=== PATIENT | male | born 1955 | race Caucasian/White ===

== ENCOUNTER 2019-11-23 20:48 | Observation (INO) | payer MEDICARE, OTHER ==
[2019-11-23] MEDS ORDERED: SODIUM CHLORIDE 0.9% 1,000 ML IV STA (21:29)
--- NOTE | 2019-11-23 21:46 | ED ---
General Adult HPI - General Chief complaint: Syncope Stated complaint: Syncope Time Seen by Provider: 11/23/19 21:00 Source: patient, EMS Mode of arrival: EMS Limitations: no limitations - History of Present Illness Initial comments: 64-year-old male patient presents to the emergency department today for evaluation after having 3 syncopal episodes. Patient was pain with some friends when he stood up stated he felt really dizzy and then crumpled to the ground. States that he came to and sit up 2 more times with similar results. We states he was clenching his fists and his arms were shaking when this occurred. Patient did hit his head with one of the falls. Patient states he currently feels well. Denies any headache, blurred vision, double vision. Denies any chest pain or shortness of breath. States she has been feeling more tired than usual over the last couple days but otherwise well. He does not take any medications for other medical conditions. States he did have 2 beers this evening. Denies any other injuries at the falls. Denies neck or back pain. Patient denies any recent rash, fever, chills, cough, abdominal pain, nausea, vomiting, diarrhea, constipation, numbness, tingling, dizziness, weakness, hematuria, dysuria, urinary urgency, urinary frequency, or any other complaints. - Related Data Home Medications Medication Instructions Recorded Confirmed Multivitamins, Thera [Multivitamin 1 tab PO DAILY 11/23/19 11/23/19 (formulary)] Allergies Allergy/AdvReac Type Severity Reaction Status Date / Time No Known Allergies Allergy Verified 11/23/19 22:27 Review of Systems ROS Statement: Those systems with pertinent positive or pertinent negative responses have been documented in the HPI. ROS Other: All systems not noted in ROS Statement are negative. Past Medical History Past Medical History: No Reported History History of Any Multi-Drug Resistant Organisms: None Reported Past Surgical History: No Surgical Hx Reported Past Psychological History: No Psychological Hx Reported Smoking Status: Never smoker Past Alcohol Use History: Occasional Past Drug Use History: Marijuana General Exam Limitations: no limitations General appearance: alert, in no apparent distress, other (This is a well- developed, well-nourished adult male patient in no acute distress. Vital signs upon presentation are temperature 99.0F, pulse 73, respirations 18, blood pressure 139/79, pulse ox 97% on room air.) Head exam: Present: other (Abrasion noted to the right frontal scalp) Eye exam: Present: normal appearance, PERRL, EOMI. Absent: scleral icterus, conjunctival injection, nystagmus, periorbital swelling ENT exam: Present: normal exam, normal oropharynx, mucous membranes moist Neck exam: Present: normal inspection, full ROM, other (Nontender, no step-off, no deformity to firm midline palpation of the posterior cervical spine. Full range of motion without pain or limitation.). Absent: tenderness, meningismus, lymphadenopathy Respiratory exam: Present: normal lung sounds bilaterally. Absent: respiratory distress, wheezes, rales, rhonchi, stridor Cardiovascular Exam: Present: regular rate, normal rhythm, normal heart sounds. Absent: systolic murmur, diastolic murmur, rubs, gallop, clicks GI/Abdominal exam: Present: soft, normal bowel sounds. Absent: distended, tenderness, guarding, rebound, rigid Back exam: Present: normal inspection. Absent: vertebral tenderness Neurological exam: Present: alert, oriented X3, CN II-XII intact, other (Strength in all 4 extremities is 5/5.) Psychiatric exam: Present: normal affect, normal mood Skin exam: Present: warm, dry, intact, normal color. Absent: rash Course Vital Signs 11/23/19 11/23/19 20:51 22:33 Temperature 99.0 F Pulse Rate 73 69 Respiratory 18 18 Rate Blood Pressure 139/79 133/76 O2 Sat by Pulse 97 98 Oximetry EKG Findings - EKG Comments: EKG Findings:: EKG obtained at 2103 shows normal sinus rhythm with a ventricular rate of 71, ID interval 154, QRS duration 76, QT 362, QTc 393. No evidence of ST elevation or depression. Medical Decision Making - Medical Decision Making 64-year-old male patient presents to the emergency department today for evaluation of syncope 3. Physical examination is unremarkable. He is neurologically intact with no focal deficits. Labs reviewed and are unremarkable. EKG shows normal sinus rhythm. CT brain negative. Chest x-ray negative. Patient be admitted to the hospital for observation. Dr. Downey is accepting. - Lab Data Result diagrams: 11/23/19 21:38 11/23/19 21:38 Lab Results 11/23/19 11/23/19 11/23/19 Range/Units 21:38 21:38 21:38 WBC 5.7 (3.8-10.6) k/uL RBC 4.82 (4.30-5.90) m/uL Hgb 14.6 (13.0-17.5) gm/dL Hct 44.2 (39.0-53.0) % MCV 91.7 (80.0-100.0) fL MCH 30.3 (25.0-35.0) pg MCHC 33.0 (31.0-37.0) g/dL RDW 12.9 (11.5-15.5) % Plt Count 196 (150-450) k/uL Neutrophils % 69 % Lymphocytes % 19 % Monocytes % 8 % Eosinophils % 1 % Basophils % 1 % Neutrophils # 3.9 (1.3-7.7) k/uL Lymphocytes # 1.1 (1.0-4.8) k/uL Monocytes # 0.4 (0-1.0) k/uL Eosinophils # 0.1 (0-0.7) k/uL Basophils # 0.1 (0-0.2) k/uL PT 9.9 (9.0-12.0) sec INR 0.9 (<1.2) APTT 22.1 (22.0-30.0) sec Sodium (137-145) mmol/L Potassium (3.5-5.1) mmol/L Chloride (98-107) mmol/L Carbon Dioxide (22-30) mmol/L Anion Gap mmol/L BUN (9-20) mg/dL Creatinine (0.66-1.25) mg/dL Est GFR (CKD-EPI)AfAm (>60 ml/min/1.73 sqM) Est GFR (CKD-EPI)NonAf (>60 ml/min/1.73 sqM) Glucose (74-99) mg/dL Calcium (8.4-10.2) mg/dL Magnesium (1.6-2.3) mg/dL Total Bilirubin (0.2-1.3) mg/dL AST (17-59) U/L ALT (4-49) U/L Alkaline Phosphatase (38-126) U/L Troponin I (0.000-0.034) ng/mL Total Protein (6.3-8.2) g/dL Albumin (3.5-5.0) g/dL Urine Color Yellow Urine Appearance Clear (Clear) Urine pH 6.0 (5.0-8.0) Ur Specific [place] 1.030 (1.001-1.035) Urine Protein 1+ H (Negative) Urine Glucose (UA) Negative (Negative) Urine Ketones 2+ H (Negative) Urine Blood Negative (Negative) Urine Nitrite Negative (Negative) Urine Bilirubin Negative (Negative) Urine Urobilinogen 2.0 (<2.0) mg/dL Ur Leukocyte Esterase Negative (Negative) Urine RBC 1 (0-5) /hpf Urine WBC 2 (0-5) /hpf Ur Squamous Epith Cells <1 (0-4) /hpf Hyaline Casts 7 H (0-2) /lpf Urine Mucus Many H (None) /hpf 11/23/19 11/23/19 Range/Units 21:38 21:38 WBC (3.8-10.6) k/uL RBC (4.30-5.90) m/uL Hgb (13.0-17.5) gm/dL Hct (39.0-53.0) % MCV (80.0-100.0) fL MCH (25.0-35.0) pg MCHC (31.0-37.0) g/dL RDW (11.5-15.5) % Plt Count (150-450) k/uL Neutrophils % % Lymphocytes % % Monocytes % % Eosinophils % % Basophils % % Neutrophils # (1.3-7.7) k/uL Lymphocytes # (1.0-4.8) k/uL Monocytes # (0-1.0) k/uL Eosinophils # (0-0.7) k/uL Basophils # (0-0.2) k/uL PT (9.0-12.0) sec INR (<1.2) APTT (22.0-30.0) sec Sodium 135 L (137-145) mmol/L Potassium 4.0 (3.5-5.1) mmol/L Chloride 101 (98-107) mmol/L Carbon Dioxide 21 L (22-30) mmol/L Anion Gap 13 mmol/L BUN 14 (9-20) mg/dL Creatinine 1.08 (0.66-1.25) mg/dL Est GFR (CKD-EPI)AfAm 83 (>60 ml/min/1.73 sqM) Est GFR (CKD-EPI)NonAf 72 (>60 ml/min/1.73 sqM) Glucose 131 H (74-99) mg/dL Calcium 9.2 (8.4-10.2) mg/dL Magnesium 2.0 (1.6-2.3) mg/dL Total Bilirubin 0.4 (0.2-1.3) mg/dL AST 39 (17-59) U/L ALT 39 (4-49) U/L Alkaline Phosphatase 42 (38-126) U/L Troponin I <0.012 (0.000-0.034) ng/mL Total Protein 7.1 (6.3-8.2) g/dL Albumin 4.4 (3.5-5.0) g/dL Urine Color Urine Appearance (Clear) Urine pH (5.0-8.0) Ur Specific [place] (1.001-1.035) Urine Protein (Negative) Urine Glucose (UA) (Negative) Urine Ketones (Negative) Urine Blood (Negative) Urine Nitrite (Negative) Urine Bilirubin (Negative) Urine Urobilinogen (<2.0) mg/dL Ur Leukocyte Esterase (Negative) Urine RBC (0-5) /hpf Urine WBC (0-5) /hpf Ur Squamous Epith Cells (0-4) /hpf Hyaline Casts (0-2) /lpf Urine Mucus (None) /hpf - Radiology Data Radiology results: report reviewed, image reviewed Two-view x-ray of the chest is obtained. Report is reviewed in its entirety. Impression by Dr. Herzog shows normal chest CT brain without contrast is obtained. Report reviewed in its entirety. Impression by Dr. Herzog shows negative unenhanced head CT scan. Disposition Clinical Impression: Syncope Disposition: ADMITTED IP TO THIS [facility] Condition: Serious Referrals: None,Stated [Primary Care Provider] - 1-2 days Decision to Admit Reason: Admit from EC Decision Date: 11/23/19 Decision Time: 23:18
--- NOTE | 2019-11-23 21:52 | XR ---
EXAMINATION TYPE: XR chest 2V DATE OF EXAM: 11/23/2019 COMPARISON: NONE HISTORY: Syncope TECHNIQUE: 2 views FINDINGS: Heart and mediastinum are normal. Lungs are clear. Diaphragm is normal. Bony thorax appears normal. The pulmonary vascularity is normal. There are chest leads. IMPRESSION: Normal chest.
[2019-11-23 21:56] LABS: Basophils # (A) 0.1 k/uL (0-0.2); Basophils % (A) 1 %; Eosinophils # (A) 0.1 k/uL (0-0.7); Eosinophils % (A) 1 %; HCT 44.2 % (39.0-53.0); HGB 14.6 gm/dL (13.0-17.5); Lymphocytes # (A) 1.1 k/uL (1.0-4.8); Lymphocytes % (A) 19 %; MCH 30.3 pg (25.0-35.0); MCV 91.7 fL (80.0-100.0); Mean Platelet Volume 8.6; Monocytes # (A) 0.4 k/uL (0-1.0); Monocytes % (A) 8 %; Neutrophils # (A) 3.9 k/uL (1.3-7.7); Neutrophils % (A) 69 %; Platelet Count 196 k/uL (150-450); RBC 4.82 m/uL (4.30-5.90); RDW 12.9 % (11.5-15.5); WBC 5.7 k/uL (3.8-10.6)
[2019-11-23 22:01] LABS: Albumin 4.4 g/dL (3.5-5.0); Calcium 9.2 mg/dL (8.4-10.2); Hyaline Casts,Urine 7 /lpf (0-2); Mucus,Urine Many /hpf; RBC,Urine 1 /hpf (0-5); Squamous Epithelial Cell,Urine <1 /hpf (0-4); Total Bilirubin 0.4 mg/dL (0.2-1.3); Total Protein 7.1 g/dL (6.3-8.2); WBC,Urine 2 /hpf (0-5)
[2019-11-23 22:03] LABS: Appearance,Urine Clear (Clear); Color,Urine Yellow; Protein,Urine 1+ (Negative)
--- NOTE | 2019-11-23 22:03 | CT ---
EXAMINATION TYPE: CT brain wo con DATE OF EXAM: 11/23/2019 COMPARISON: None HISTORY: syncope CT DLP: 1158.4 mGycm Automated exposure control for dose reduction was used. Ventricles have normal size. There is no mass effect nor midline shift. There is no sign of intracran ial hemorrhage. The calvarium is intact. IMPRESSION: Negative unenhanced head CT scan.
[2019-11-23 22:04] LABS: Bilirubin,Urine Negative (Negative); Blood,Urine Negative (Negative); Glucose,Urine (UA) Negative (Negative); Ketones,Urine 2+ (Negative); Leukocyte Esterase,Urine Negative (Negative); Nitrite,Urine Negative (Negative)
[2019-11-23 22:06] LABS: INR 0.9 (<1.2); Partial Thromboplastin Time 22.1 sec (22.0-30.0); Prothrombin Time 9.9 sec (9.0-12.0)
[2019-11-23] MEDS ORDERED: NALOXONE 0.4 MG/ML 1 ML VIAL IV PRN (23:15)
[2019-11-23] MEDS ORDERED: SODIUM CHLORIDE 0.9% 1,000 ML IV SCH (23:15)
--- NOTE | 2019-11-23 23:41 | P.HPIM ---
History of Present Illness H&P Date: 11/23/19 The patient is a 64-year-old male with no known PMH who presented to the ED after an episode of syncope. History supplemented by the at the bedside since patient is unable to recall the episode. The notes that they were at a friend's house sitting in a stool at a bar when the patient tried to get up and immediately fell to the ground. The patient does not recall the episode to the reports that he was immediately able to answer questions. Within a few seconds, his friends helped him to his feet when the patient then again became dazed and had some shaking movements of his arm lasting 1-2 seconds, and fell to the ground again. The patient again was responsive and was able to answer questions immediately though may have been somewhat confused for a few seconds. They sat him up, and gave him some water and activated EMS. The patient reports hitting his head, though is unsure when exactly it happened. He does not recall the episode and is thereby unsure of any prodromal symptoms. Denied urinary incontinence. Denied tongue biting. Denied chest pain, shortness of breath, nausea, vomiting, diaphoresis. Reports that over the past few days he has felt somewhat more lethargic and feels that he had might not have been drinking enough water as his urine has been more dark. Denied any previous episodes of syncope. In the emergency room, CT brain and chest x-ray were unremarkable. Laboratory evaluation revealed a troponin less than 0.012, BUN 14, creatinine 1.08, sodium 135, CO2 21. EKG had revealed a normal sinus rhythm at [address]/T-wave changes noted as reviewed by me. Review of Systems Pertinent positives and negatives as discussed in HPI, a complete review of systems was performed and all other systems are negative. Past Medical History Past Medical History: No Reported History History of Any Multi-Drug Resistant Organisms: None Reported Past Surgical History: No Surgical Hx Reported Past Psychological History: No Psychological Hx Reported Smoking Status: Never smoker Past Alcohol Use History: Occasional Past Drug Use History: Marijuana - Past Family History Brother(s) Family Medical History: Diabetes Mellitus Medications and Allergies Home Medications Medication Instructions Recorded Confirmed Type Multivitamins, Thera [Multivitamin 1 tab PO DAILY 11/23/19 11/23/19 History (formulary)] Allergies Allergy/AdvReac Type Severity Reaction Status Date / Time No Known Allergies Allergy Verified 11/23/19 22:27 Physical Exam Vitals: Vital Signs Temp Pulse Pulse Pulse Pulse Resp BP 11/23/19 23:22 69 74 64 11/23/19 22:33 69 18 133/76 11/23/19 20:51 99.0 F 73 18 139/79 BP BP BP Pulse Ox 11/23/19 23:22 142/74 125/76 118/62 11/23/19 22:33 98 11/23/19 20:51 97 Intake and Output 11/23/19 11/23/19 11/24/19 14:59 22:59 06:59 Other: Weight 94.347 kg General: non toxic, no distress, appears at stated age, obese Derm: no unusual rashes/lesions no unusual ecchymoses, warm, dry Head: Right sided scalp abrasion, normocephalic, symmetric Eyes: EOMI, no lid lag, anicteric sclera, pupils equal round reactive to light ENT: Nose and ears atraumatic, no thrush, no pharyngeal erythema Neck: No thyromegaly, no cervical lymphadenopathy, trachea midline, supple Mouth: no lip lesion, mucus membranes moist Cardiovascular: S1S2 reg, no murmur, positive posterior tibial pulse bilateral, no edema, capillary refill less than 2 seconds Lungs: CTA bilateral, no rhonchi, no rales , no accessory muscle use Abdominal: soft, nontender to palpation, no guarding, no appreciable organomegaly, normal bowel sounds Ext: no gross muscle atrophy, muscle strength 5 out of 5 in all 4 extremities grossly, no contractures, Neuro: CN II-XI grossly intact, light touch intact all 4 extremities, finger to nose within normal limits, Psych: Alert, oriented, appropriate affect Results CBC & Chem 7: 11/23/19 21:38 11/23/19 21:38 Labs: Abnormal Lab Results - Last 24 Hours (Table) 11/23/19 11/23/19 Range/Units 21:38 21:38 Sodium 135 L (137-145) mmol/L Carbon Dioxide 21 L (22-30) mmol/L Glucose 131 H (74-99) mg/dL Urine Protein 1+ H (Negative) Urine Ketones 2+ H (Negative) Hyaline Casts 7 H (0-2) /lpf Urine Mucus Many H (None) /hpf Assessment and Plan Plan: Syncope, likely orthostatic -Obtain orthostatic vitals -Fall precautions -Cardiac monitoring -Continue with IV fluids -Obtain Echo Hyponatremia -Monitor BMP DVT prophylaxis -Heparin subq The patient is admitted with an anticipated less than 2 midnight stay for evaluation of syncope CODE STATUS: Full Code Discussed with: Patient Anticipated discharge date: 11/[address]: Home A total of 35 minutes was spent on the care of this complex patient more than 50% of the time was spent in counseling and care coordination.
[2019-11-24] MEDS ORDERED: HEPARIN SODIUM,PORCINE 5,000 UNIT/ML 1 ML VIAL SQ SCH (08:00)
[2019-11-24 08:37] VITALS: PULSE 60; RESP 16; TEMP 98.3
[2019-11-24 10:10] VITALS: BP 131/72
--- NOTE | 2019-11-24 14:44 | P.DS ---
Providers Date of admission: 11/23/19 23:01 Expected date of discharge: 11/24/19 Attending physician: Dylon Downey MD Primary care physician: Stated None Hospital Course: The patient is a 64-year-old male with no known PMH who presented to the ED after an episode of syncope. History supplemented by the at the bedside since patient is unable to recall the episode. The notes that they were at a friend's house sitting in a stool at a bar when the patient tried to get up and immediately fell to the ground. The patient does not recall the episode to the reports that he was immediately able to answer questions. Within a few seconds, his friends helped him to his feet when the patient then again became dazed and had some shaking movements of his arm lasting 1-2 seconds, and fell to the ground again. The patient again was responsive and was able to answer questions immediately though may have been somewhat confused for a few seconds. They sat him up, and gave him some water and activated EMS. The patient reports hitting his head, though is unsure when exactly it happened. He does not recall the episode and is thereby unsure of any prodromal symptoms. Denied urinary incontinence. Denied tongue biting. Denied chest pain, shortness of breath, nausea, vomiting, diaphoresis. Reports that over the past few days he has felt somewhat more lethargic and feels that he had might not have been drinking enough water as his urine has been more dark. Denied any previous episodes of syncope. In the emergency room, CT brain and chest x-ray were unremarkable. Laboratory evaluation revealed a troponin less than 0.012, BUN 14, creatinine 1.08, sodium 135, CO2 21. EKG had revealed a normal sinus rhythm at [address]/T-wave changes noted. His orthostats were initially positive. He was started on IV hydration. Repeat orthostats on November 23 was negative. Patient was seen and examined. No acute events overnight. Patient reports no dizziness. Orthostats are negative this morning. He denies any chest pain, shortness breath or palpitations. No fever or chills. No nausea or vomiting. General: [non toxic], [no distress], [appears at stated age] Derm: [warm], [dry] Head: [atraumatic], [normocephalic], [symmetric] Eyes: [EOMI], [no lid lag], [anicteric sclera] Mouth: [no lip lesion], [mucus membranes moist] Cardiovascular: [S1S2 reg], [no murmur], [positive posterior tibial pulse bilateral], Lungs: [CTA bilateral], [no rhonchi, no rales] , [no accessory muscle use] Abdominal: [soft], [ nontender to palpation], [no guarding], [no appreciable organomegaly] Ext: [no gross muscle atrophy], [no edema], [no contractures] Neuro: [ CN II-XI grossly intact], [no focal neuro deficits] Psych: [Alert], [oriented], [appropriate affect] Syncope, likely orthostatic -Orthostatic vitals initially positive, negative on repeat after IVF -Fall precautions -Cardiac monitoring -Obtain Echo in the outpatient setting Hyponatremia -Monitor BMP Overweight -Structured weight loss program [Dizziness resolved. No further syncopal episodes. Advised patient to follow- up with PCP for echocardiogram. Patient verbalized understanding of the plan. Anticipated DC home today.] Pertinent Studies: Chest x-ray, brain CT Patient Condition at Discharge: Stable Plan - Discharge Summary Discharge Rx Participant: No New Discharge Prescriptions: Continue Multivitamins, Thera [Multivitamin (formulary)] 1 tab PO DAILY Discharge Medication List Multivitamins, Thera [Multivitamin (formulary)] 1 tab PO DAILY 11/23/19 [History] Follow up Appointment(s)/Referral(s): None,Stated [Primary Care Provider] - 1-2 days Activity/Diet/Wound Care/Special Instructions: Diet; Regular Please drink plenty of water. FU PCP within 3 days. Note to PCP: Order Echo Come back to the ED or call 911 for worsening dizziness, CP, SOB or palpitations. Discharge Disposition: HOME SELF-CARE
== END 2019-11-24 11:12 | disposition home or self-care (01) ==
LOC: EC 20:48 → 3NCARDOBS 23:01
PROVIDERS: ADMIT Internal Medicine; ATTEND Internal Medicine
DX: R55 Syncope and collapse (principal); E87.1 Hypo-osmolality and hyponatremia; W19.XXXA Unspecified fall, initial encounter; Z83.3 Family history of diabetes mellitus; E66.3 Overweight; Z71.3 Dietary counseling and surveillance
CPT/HCPCS: 96361; 96360; 99285; 36415; 93005; 80053; 83735; 84484; 85025; 85610; 85730; 81001; 71046; 70450; G0378 ×2